=== PATIENT | female | born 1990 | race American Indian/Alaskan Native ===

== ENCOUNTER 2016-11-21 10:30 | Inpatient (IN) | payer BC, OTHER ==
[2016-11-21 10:30] VITALS: BMI 66.0
[2016-11-21] MEDS ORDERED: Oxycodone/Acetaminophen 5/325 mg Tab ONE ×2 (11:28→16:31)
[2016-11-21] MEDS ORDERED: Oxycodone/Acetaminophen 5/325 mg Tab PO STA ×2 (11:40→16:28)
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
[2016-11-21] MEDS: Oxycodone/Acetaminophen 5/325 mg Tab PO PRN ×2 (19:42→23:56)
[2016-11-21 20:20] LABS: BASO % 0.4 % (0.0-2.0); EOS # 0.1 K/uL (0.0-0.7); EOS % 1.2 % (0.0-4.0); HEMATOCRIT 32.8 % (34.0-47.0); LYMPH # 2.1 K/uL (1.0-4.3); LYMPH % 25.5 % (20.0-40.0); MEAN CORPUSCULAR HEMOGLOBIN 27.6 pg (27.0-31.0); MEAN CORPUSCULAR HGB CONC 32.1 g/dL (33.0-37.0); MEAN PLATELET VOLUME 8.2 fL (7.2-11.7); MONO # 0.8 K/uL (0.0-0.8); MONO % 9.4 % (0.0-10.0); RED CELL DISTRIBUTION WIDTH 14.4 % (11.5-14.5); WHITE BLOOD COUNT 8.4 K/uL (4.8-10.8)
[2016-11-21 20:28] LABS: CHLORIDE 101 mmol/L (98-107); POTASSIUM 3.6 mmol/L (3.6-5.2); SODIUM 137 mmol/L (132-148)
[2016-11-21 20:31] LABS: ALKALINE PHOSPHATASE 41 U/L (38-126); ALT/SGPT 16 U/L (9-52); AST/SGOT 32 U/L (14-36); BILIRUBIN,TOTAL 0.4 mg/dL (0.2-1.3); BLOOD UREA NITROGEN 7 mg/dL (7-17); CALCIUM 8.7 mg/dl (8.6-10.4); CARBON DIOXIDE 24 mmol/L (22-30); GFR AFRICAN-AMERICAN > 60; GLUCOSE,RANDOM 119 mg/dL (65-105); TOTAL PROTEIN 6.5 g/dL (6.3-8.3)
[2016-11-22] MEDS: Oxycodone/Acetaminophen 5/325 mg Tab PO PRN ×5 (04:45→22:34)
[2016-11-22] MEDS: Pantoprazole 40 mg EC Tab PO SCH (09:39)
[2016-11-22] MEDS: Enoxaparin 40 mg Syringe SC SCH (09:39)
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
[2016-11-22] MEDS ORDERED: Influenza Virus Vaccine 45 mcg/0.5 ml Syr IM ONE (10:00)
--- NOTE | 2016-11-22 16:36 | VASCLAB ---
PROCEDURE: Left Lower Extremity Venous Duplex Exam. HISTORY: swelling pain Previous Left Leg orthopedic surgery, Suspected DVT PRIORS: None. TECHNIQUE: Left common femoral, femoral, popliteal and posterior tibial, peroneal and great saphenous veins were evaluated. Flow was assessed with color Doppler, compressibility, assessment of phasic flow and augmentation response. Report prepared by Castro Tarango RVT FINDINGS: LEFT: 1. Common Femoral Vein: 1.1. Compressibility - Fully compressible: Thrombus - None : Flow - Phasic: Augmentation -Normal. 2. Femoral Vein: 2.1. Compressibility - Fully compressible: Thrombus - None: Flow - Phasic: Augmentation -Normal. 3. Popliteal Vein: 3.1. Compressibility - Fully compressible: Thrombus - None: Flow - Phasic: Augmentation -Normal. 4. Posterior Tibial Vein: 4.1. Compressibility - Fully compressible: Thrombus - None: Flow - Phasic: Augmentation -Normal. 5. Peroneal Vein: 5.1. Compressibility - Fully compressible: Thrombus - None: Flow - Phasic: Augmentation -Normal. 6. Great Saphenous Vein: 6.1. Compressibility - Fully compressible: Thrombus - None: Flow - Phasic: Augmentation - Normal. OTHER FINDINGS: IMPRESSION: No evidence of deep or superficial vein thrombosis of the left lower extremity with excellent venous flow. Normal venous flow noted in the right common femoral vein.
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
[2016-11-23 01:25] VITALS: RESP 20
[2016-11-23] MEDS: Oxycodone/Acetaminophen 5/325 mg Tab PO PRN ×4 (03:32→19:25)
[2016-11-23] MEDS: Enoxaparin 40 mg Syringe SC SCH (09:30)
[2016-11-23] MEDS: Pantoprazole 40 mg EC Tab PO SCH (09:30)
[2016-11-23] MEDS ORDERED: Pneumococcal 23-Valent Vaccine IM ONE (10:00)
--- NOTE | 2016-11-23 10:21 | CP.PCM.PN ---
Subjective - Date & Time of Evaluation Date of Evaluation: 11/23/16 Time of Evaluation: 10:18 - Subjective Subjective: Patient states pain is well controlled in knee. Complaining of itching to leg. Denies CP/SOB/dizziness/n/v/numbness/tingling. No new complaints. Tolerating PT well. Review of Systems - Review of Systems All systems: reviewed and no additional remarkable complaints except - Constitutional Additional comments: denies fever/chills - Cardiovascular Cardiovascular: As Per HPI - Respiratory Respiratory: As Per HPI - Gastrointestinal Gastrointestinal: As Per HPI - Musculoskeletal Musculoskeletal: As Par HPI - Integumentary Additional comments: itching - Hematologic/Lymphatic Additional comments: dnies Objective - Vital Signs/Intake and Output Vital Signs (last 24 hours): Temp Pulse Resp BP Pulse Ox 98.3 F 73 20 126/80 100 11/23/16 08:26 11/23/16 08:26 11/23/16 08:26 11/23/16 08:26 11/23/16 08:26 - Medications Medications: Current Medications Enoxaparin Sodium (Lovenox) 40 mg SC DAILY [facility] Last Admin: 11/23/16 09:30 Dose: 40 mg Oxycodone/Acetaminophen (Percocet 5/325 Mg Tab) 1 tab PO Q4H PRN PRN Reason: Pain, moderate (4-7) Stop: 11/24/16 19:26 Last Admin: 11/23/16 08:25 Dose: 1 tab Pantoprazole Sodium (Protonix Ec Tab) 40 mg PO DAILY [facility] Last Admin: 11/23/16 09:30 Dose: 40 mg Sennosides (Senokot Tab) 17.[address] [facility] Last Admin: 11/22/16 21:06 Dose: 17.2 mg - Labs Labs: 11/21/16 20:05 11/21/16 20:05 - Constitutional Appears: Well, No Acute Distress - Head Exam Head Exam: ATRAUMATIC, NORMAL INSPECTION - ENT Exam ENT Exam: Mucous Membranes Moist - Neck Exam Neck Exam: Full ROM, Normal Inspection - Respiratory Exam Respiratory Exam: NORMAL BREATHING PATTERN - Cardiovascular Exam Additional comments: +DP/PT pulses calves sfot Nt neg homans - Exam Additional comments: sensation itnact LLE swelling improved significantly from yesterday with compression and elevation. Dressing changed. Xeroform applied, sterile gauze. Fuad toes to groin. No erythema. Incision intact and healing well. Skin dry around thigh and calf, lotion applied. patient admits to relief from itching. Knee immobilizer reapplied and adjusted. - Neurological Exam Neurological Exam: Alert, Awake, Oriented x3 Neuro motor strength exam: Left Lower Extremity: 5 (+DF/PF ankle, toes flex/ext improving with encouraged motion) - Psychiatric Exam Psychiatric exam: Normal Affect, Normal Mood - Skin Skin Exam: Intact, Normal Color, Warm Additional comments: scant serous drainage lateral poke hole from reduction clamp Assessment and Plan (1) Impaired mobility and ADLs Assessment & Plan: PT note appreciated rehab referral pending NWB Status: Acute (2) Status post open reduction with internal fixation of fracture Assessment & Plan: healing well pain controlled xrays left knee AP/lat reviewed, shows left lateral tibial plateau fracture s/p ORIF with plate and screw fixation laterally. Acceptable alignment of fracture with intact hardware noted. cont PT/OT d/w Dr. Mackay, agrees with above patient to f/u Dr. Carbajal within 1 week of discharge, call for appointment Status: Acute (3) Left leg swelling Assessment & Plan: venous doppler LLE neg for DVT on lovenox encourage OOB encourage ROM ankle Status: Acute
--- NOTE | 2016-11-23 10:47 | CP.PCM.PN ---
Subjective - Date & Time of Evaluation Date of Evaluation: 11/23/16 Time of Evaluation: 01:40 - Subjective Subjective: clinically same Objective - Vital Signs/Intake and Output Vital Signs (last 24 hours): Temp Pulse Resp BP Pulse Ox 98.3 F 73 20 126/80 100 11/23/16 08:26 11/23/16 08:26 11/23/16 08:26 11/23/16 08:26 11/23/16 08:26 - Medications Medications: Current Medications Enoxaparin Sodium (Lovenox) 40 mg SC DAILY [facility] Last Admin: 11/23/16 09:30 Dose: 40 mg Oxycodone/Acetaminophen (Percocet 5/325 Mg Tab) 1 tab PO Q4H PRN PRN Reason: Pain, moderate (4-7) Stop: 11/24/16 19:26 Last Admin: 11/23/16 08:25 Dose: 1 tab Pantoprazole Sodium (Protonix Ec Tab) 40 mg PO DAILY [facility] Last Admin: 11/23/16 09:30 Dose: 40 mg Sennosides (Senokot Tab) 17.2 mg PO HS [facility] Last Admin: 11/22/16 21:06 Dose: 17.2 mg - Labs Labs: 11/21/16 20:05 11/21/16 20:05 - Constitutional Appears: Well - Head Exam Head Exam: ATRAUMATIC, NORMAL INSPECTION, NORMOCEPHALIC - Eye Exam Eye Exam: EOMI, Normal appearance, PERRL Pupil Exam: NORMAL ACCOMODATION, PERRL - ENT Exam ENT Exam: Mucous Membranes Moist, Normal Exam - Neck Exam Neck Exam: Full ROM, Normal Inspection. absent: Lymphadenopathy - Respiratory Exam Respiratory Exam: Decreased Breath Sounds - Cardiovascular Exam Cardiovascular Exam: REGULAR RHYTHM, +S1, +S2 - GI/Abdominal Exam GI & Abdominal Exam: Soft, Diminished Bowel Sounds - Rectal Exam Rectal Exam: Deferred Assessment and Plan (1) Abdominal pain Status: Acute (2) Closed fracture of lateral portion of left tibial plateau with routine healing Status: Acute (3) Diarrhea Status: Acute (4) Gastritis Status: Acute (5) Gastroenteritis Status: Acute (6) Impaired mobility and ADLs Status: Acute (7) Left leg swelling Status: Acute (8) Nausea Status: Acute (9) Pancreatitis Status: Acute (10) Status post open reduction with internal fixation of fracture Status: Acute (11) Tibial plateau fracture Status: Acute (12) Vomiting Status: Acute - Assessment and Plan (Free Text) Plan: Percocet Physical therapy Protonix Lovenox Encourage OOB
--- NOTE | 2016-11-23 12:25 | RAD ---
PROCEDURE: Left Knee Radiographs. HISTORY: Pain. COMPARISON: Not available FINDINGS: BONES: Status post ORIF proximal tibia. Plate and screw fixation device along lateral aspect proximal tibia. Probable healing vertical fracture lateral tibial condyles. Fracture difficult to appreciate. No other fracture identified. JOINTS: Normal. No osteoarthritis. JOINT EFFUSION: Small joint effusion and gas in suprapatellar bursa. OTHER FINDINGS: None. IMPRESSION: ORIF proximal left tibia.
[2016-11-24] MEDS: Oxycodone/Acetaminophen 5/325 mg Tab PO PRN ×3 (01:58→14:44)
--- NOTE | 2016-11-24 09:47 | CP.PCM.PN ---
Subjective - Date & Time of Evaluation Date of Evaluation: 11/24/16 Time of Evaluation: 09:48 - Subjective Subjective: Patient complaining of leg pain today, controlled with medication. Patient sleeping, in bed. Denies CP/SOB/dizziness/n/v/numbness/tingling. Objective - Vital Signs/Intake and Output Vital Signs (last 24 hours): Temp Pulse Resp BP Pulse Ox 99.2 F 76 20 117/72 96 11/24/16 09:20 11/24/16 09:20 11/24/16 09:20 11/24/16 09:20 11/24/16 09:20 - Medications Medications: Current Medications Enoxaparin Sodium (Lovenox) 40 mg SC DAILY [facility] Last Admin: 11/23/16 09:30 Dose: 40 mg Oxycodone/Acetaminophen (Percocet 5/325 Mg Tab) 1 tab PO Q4H PRN PRN Reason: Pain, moderate (4-7) Stop: 11/24/16 19:26 Last Admin: 11/24/16 08:26 Dose: 1 tab Pantoprazole Sodium (Protonix Ec Tab) 40 mg PO DAILY [facility] Last Admin: 11/23/16 09:30 Dose: 40 mg Sennosides (Senokot Tab) 17.2 mg PO HS [facility] Last Admin: 11/23/16 23:00 Dose: 17.2 mg - Labs Labs: 11/21/16 20:05 11/21/16 20:05 - Constitutional Appears: Well, No Acute Distress - Head Exam Head Exam: ATRAUMATIC, NORMAL INSPECTION - ENT Exam ENT Exam: Mucous Membranes Moist - Neck Exam Neck Exam: Full ROM, Normal Inspection - Respiratory Exam Respiratory Exam: NORMAL BREATHING PATTERN - Cardiovascular Exam Additional comments: +DP/PT pulses calves soft NT neg homans - Extremities Exam Additional comments: sensation intact swelling improving improving pain free ROM ankle compartments soft , no pain with passive ROM toes - Neurological Exam Neurological Exam: Alert, Awake, Oriented x3 Neuro motor strength exam: Left Lower Extremity: 5 (5/5 ankle DF/PF, toes flex/ ext) - Psychiatric Exam Psychiatric exam: Normal Affect, Normal Mood - Skin Skin Exam: Normal Color, Warm Additional comments: no erythema, incision intact, no visible drainage Assessment and Plan (1) Impaired mobility and ADLs Assessment & Plan: PT/OT rehab referral pending VTE proph encourage OOB NWB d/w Dr. Nicole, agrees with above Status: Acute (2) Status post open reduction with internal fixation of fracture Assessment & Plan: POD# 6 s/p ORIF left lateral tibial plateau fx -awaiting rehab placement -orthopedically stable for transfer Status: Acute (3) Left leg swelling Assessment & Plan: improving doppers negative Status: Acute (4) Closed fracture of lateral portion of left tibial plateau with routine healing Assessment & Plan: s/p ORIF Dr. Carbajal [facility] [place] Status: Acute
[2016-11-24] MEDS: Enoxaparin 40 mg Syringe SC SCH (09:55)
[2016-11-24] MEDS: Pantoprazole 40 mg EC Tab PO SCH (09:55)
--- NOTE | 2016-11-24 18:36 | CP.PCM.PN ---
Subjective - Date & Time of Evaluation Date of Evaluation: 11/24/16 Time of Evaluation: 01:00 - Subjective Subjective: clinically same Objective - Vital Signs/Intake and Output Vital Signs (last 24 hours): Temp Pulse Resp BP Pulse Ox 99.4 F 70 20 111/71 100 11/24/16 16:51 11/24/16 16:51 11/24/16 16:51 11/24/16 16:51 11/24/16 16:51 - Medications Medications: Current Medications Enoxaparin Sodium (Lovenox) 40 mg SC DAILY [facility] Last Admin: 11/24/16 09:55 Dose: 40 mg Oxycodone/Acetaminophen (Percocet 5/325 Mg Tab) 1 tab PO Q4H PRN PRN Reason: Pain, moderate (4-7) Stop: 11/24/16 19:26 Last Admin: 11/24/16 14:44 Dose: 1 tab Pantoprazole Sodium (Protonix Ec Tab) 40 mg PO DAILY [facility] Last Admin: 11/24/16 09:55 Dose: 40 mg Sennosides (Senokot Tab) 17.2 mg PO HS [facility] Last Admin: 11/23/16 23:00 Dose: 17.2 mg - Labs Labs: 11/21/16 20:05 11/21/16 20:05 - Constitutional Appears: Well - Head Exam Head Exam: ATRAUMATIC, NORMAL INSPECTION, NORMOCEPHALIC - Eye Exam Eye Exam: EOMI, Normal appearance, PERRL Pupil Exam: NORMAL ACCOMODATION, PERRL - ENT Exam ENT Exam: Mucous Membranes Moist, Normal Exam - Neck Exam Neck Exam: Full ROM, Normal Inspection. absent: Lymphadenopathy - Respiratory Exam Respiratory Exam: Decreased Breath Sounds - Cardiovascular Exam Cardiovascular Exam: REGULAR RHYTHM, +S1, +S2 - GI/Abdominal Exam GI & Abdominal Exam: Soft, Diminished Bowel Sounds - Rectal Exam Rectal Exam: Deferred Assessment and Plan (1) Abdominal pain Status: Acute (2) Closed fracture of lateral portion of left tibial plateau with routine healing Status: Acute (3) Diarrhea Status: Acute (4) Gastritis Status: Acute (5) Gastroenteritis Status: Acute (6) Impaired mobility and ADLs Status: Acute (7) Left leg swelling Status: Acute (8) Nausea Status: Acute (9) Pancreatitis Status: Acute (10) Status post open reduction with internal fixation of fracture Status: Acute (11) Tibial plateau fracture Status: Acute (12) Vomiting Status: Acute - Assessment and Plan (Free Text) Plan: Pain controlled with medication Lovenox Percocet Orthopedic fall precautions Encourage OOB
[2016-11-24] MEDS ORDERED: Oxycodone/Acetaminophen 5/325 mg Tab PO STA (22:00)
[2016-11-25 08:52] VITALS: BP 125/67; PULSE 67; TEMP 98.3; O2SAT 97
[2016-11-25] MEDS: Pantoprazole 40 mg EC Tab PO SCH (09:19)
[2016-11-25] MEDS: Enoxaparin 40 mg Syringe SC SCH (09:19)
--- NOTE | 2016-11-25 12:25 | CP.PCM.PN ---
Subjective - Date & Time of Evaluation Date of Evaluation: 11/25/16 Time of Evaluation: 02:00 - Subjective Subjective: clinically same Objective - Vital Signs/Intake and Output Vital Signs (last 24 hours): Temp Pulse Resp BP Pulse Ox 98.3 F 67 20 125/67 97 11/25/16 07:45 11/25/16 07:45 11/25/16 07:45 11/25/16 07:45 11/25/16 07:45 Intake and Output: 11/25/16 11/25/16 06:59 18:59 Output Total 150 Balance -150 - Medications Medications: Current Medications Enoxaparin Sodium (Lovenox) 40 mg SC DAILY [facility] Last Admin: 11/25/16 09:19 Dose: 40 mg Pantoprazole Sodium (Protonix Ec Tab) 40 mg PO DAILY [facility] Last Admin: 11/25/16 09:19 Dose: 40 mg Sennosides (Senokot Tab) 17.2 mg PO HS [facility] Last Admin: 11/24/16 22:01 Dose: 17.2 mg - Labs Labs: 11/21/16 20:05 11/21/16 20:05 - Constitutional Appears: Well - Head Exam Head Exam: ATRAUMATIC, NORMAL INSPECTION, NORMOCEPHALIC - Eye Exam Eye Exam: EOMI, Normal appearance, PERRL Pupil Exam: NORMAL ACCOMODATION, PERRL - ENT Exam ENT Exam: Mucous Membranes Moist, Normal Exam - Neck Exam Neck Exam: Full ROM, Normal Inspection. absent: Lymphadenopathy - Respiratory Exam Respiratory Exam: Decreased Breath Sounds - Cardiovascular Exam Cardiovascular Exam: REGULAR RHYTHM, +S1, +S2 - GI/Abdominal Exam GI & Abdominal Exam: Soft, Diminished Bowel Sounds - Rectal Exam Rectal Exam: Deferred Assessment and Plan (1) Abdominal pain Status: Acute (2) Closed fracture of lateral portion of left tibial plateau with routine healing Status: Acute (3) Diarrhea Status: Acute (4) Gastritis Status: Acute (5) Gastroenteritis Status: Acute (6) Impaired mobility and ADLs Status: Acute (7) Left leg swelling Status: Acute (8) Nausea Status: Acute (9) Pancreatitis Status: Acute (10) Status post open reduction with internal fixation of fracture Status: Acute (11) Tibial plateau fracture Status: Acute (12) Vomiting Status: Acute - Assessment and Plan (Free Text) Plan: Patient feeling better Pain well-controlled Discharge to home with home physical therapy Follow-up with Dr. Carbajal
--- NOTE | 2016-11-25 12:50 | CP.PCM.PN ---
Subjective - Date & Time of Evaluation Date of Evaluation: 11/25/16 Time of Evaluation: 12:47 - Subjective Subjective: Patient states pain is well controlled. Good appetite, no n/v. Denies CP/SOB/ dizziness. Denies numbness/tingling. Review of Systems - Review of Systems All systems: reviewed and no additional remarkable complaints except - Cardiovascular Cardiovascular: As Per HPI - Respiratory Respiratory: As Per HPI - Gastrointestinal Gastrointestinal: As Per HPI - Musculoskeletal Musculoskeletal: As Par HPI Objective - Vital Signs/Intake and Output Vital Signs (last 24 hours): Temp Pulse Resp BP Pulse Ox 98.3 F 67 20 125/67 97 11/25/16 07:45 11/25/16 07:45 11/25/16 07:45 11/25/16 07:45 11/25/16 07:45 Intake and Output: 11/25/16 11/25/16 06:59 18:59 Output Total 150 Balance -150 - Medications Medications: Current Medications Enoxaparin Sodium (Lovenox) 40 mg SC DAILY [facility] Last Admin: 11/25/16 09:19 Dose: 40 mg Pantoprazole Sodium (Protonix Ec Tab) 40 mg PO DAILY [facility] Last Admin: 11/25/16 09:19 Dose: 40 mg Sennosides (Senokot Tab) 17.2 mg PO HS [facility]S [facility] Last Admin: 11/24/16 22:01 Dose: 17.2 mg - Labs Labs: 11/21/16 20:05 11/21/16 20:05 - Constitutional Appears: Well, No Acute Distress - Respiratory Exam Respiratory Exam: NORMAL BREATHING PATTERN - Cardiovascular Exam Additional comments: +DP/PT pulses calves sfot NT neg homans - Extremities Exam Additional comments: sensation intact swelling to foot and lower leg continues to improve scant drainage no erythema incision intact - Neurological Exam Neurological Exam: Alert, Awake, Oriented x3 Neuro motor strength exam: Right Lower Extremity: 5 (Left ankle +DF/PF, toes flex/ext) - Skin Skin Exam: Dry, Intact, Normal Color, Warm Assessment and Plan (1) Impaired mobility and ADLs Assessment & Plan: Improving rx walker d/c home today with home PT f/u Dr. Carbajal, call today for f/u appointment d/w Dr. Nicole, agrees with above Status: Acute (2) Status post open reduction with internal fixation of fracture Assessment & Plan: see above Status: Acute (3) Left leg swelling Status: Acute (4) Closed fracture of lateral portion of left tibial plateau with routine healing Status: Acute
== END 2016-11-25 15:30 | disposition home health service (06) | DRG 921 ==
LOC: C.ER 10:30 → C.9E 15:57 → C.6T 16:51
PROVIDERS: ADMIT Internal Medicine Nephrology; ATTEND Internal Medicine Nephrology
DX: M96.830 Postprocedural hemorrhage of a musculoskeletal structure following a musculoskeletal system procedure (principal); S82.142D Displaced bicondylar fracture of left tibia, subsequent encounter for closed fracture with routine healing; M25.462 Effusion, left knee; I12.9 Hypertensive chronic kidney disease with stage 1 through stage 4 chronic kidney disease, or unspecified chronic kidney disease; M79.605 Pain in left leg; N18.9 Chronic kidney disease, unspecified; F17.210 Nicotine dependence, cigarettes, uncomplicated; V03.10XD Pedestrian on foot injured in collision with car, pick-up truck or van in traffic accident, subsequent encounter